=== PATIENT | female | born 1980 | race Caucasian/White ===

== ENCOUNTER 2016-11-28 06:19 | Day surgery (SDC) | payer MEDICAID ==
[~2016-11-28] VITALS: Ht 157.5 cm; Wt 60.3 kg
[2016-11-28] MEDS ORDERED: MIDAZOLAM 2 MG/2 ML VIAL ONE (08:36)
[2016-11-28] MEDS ORDERED: fentaNYL 0.05 MG/ML VIAL ONE (08:36)
== END 2016-11-28 09:57 | disposition home or self-care (01) ==
LOC: MOR 06:19 → MMU 06:19 → MOR 09:57
PROVIDERS: ATTEND Internal Medicine Gastroenterology
DX: R10.13 Epigastric pain (principal); Z72.89 Other problems related to lifestyle; Z98.890 Other specified postprocedural states; Z79.899 Other long term (current) drug therapy
CPT/HCPCS: 88305; 88312; 88313; J2250; J3010; J7030